=== PATIENT | female | born 2000 | race Caucasian/White ===

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

== ENCOUNTER 2022-01-15 18:41 | Emergency (ER) | payer OTHER ==
[2022-01-15] MEDS ORDERED: KETOROLAC TROMETHAMINE 30 MG/1 ML VIAL IM ONE (19:23)
[2022-01-15] MEDS ORDERED: ACETAMINOPHEN 500 MG TABLET (FP) PO ONE (19:23)
[2022-01-15] MEDS ORDERED: ONDANSETRON *ODT* 4 MG TABLET SL ONE (19:33)
[2022-01-15] MEDS ORDERED: ONDANSETRON *ODT* 4 MG TABLET ONE ×2 (20:08)
[2022-01-15] MEDS ORDERED: ACETAMINOPHEN 500 MG TABLET (FP) ONE (20:08)
[2022-01-15] MEDS ORDERED: KETOROLAC TROMETHAMINE 30 MG/1 ML VIAL ONE (20:08)
[2022-01-15 21:20] VITALS: BP 98/56; PULSE 111; TEMP 100.1
[2022-01-16 12:08] LABS: SARS-CoV-2 NAA Detected (Not Detected)
== END 2022-01-15 21:45 | disposition home or self-care (01) ==
LOC: JER 18:41
PROC: 3E0233Z Introduction of Anti-inflammatory into Muscle, Percutaneous Approach (ICD-10-PCS; principal; 2022-01-15)
DX: U07.1 COVID-19 (principal)
CPT/HCPCS: 99284-25; C9803-CS; Q0162; U0003; U0005

== ENCOUNTER 2022-04-05 13:52 | Emergency (ER) | payer OTHER ==
[2022-04-05] MEDS ORDERED: methylPREDNISolone NA SUCC 125 MG/2 ML VIAL ONE (13:57)
[2022-04-05] MEDS ORDERED: DEXAMETHASONE SOD PHOSPHATE 10 MG/1 ML VIAL IVPUSH ONE (13:57)
[2022-04-05] MEDS ORDERED: EPINEPHrine/PF 1 MG/1 ML (1:1,000) AMPULE ONE (13:57)
[2022-04-05] MEDS ORDERED: SODIUM CHLORIDE 0.9% 500 ML INFUS.BAG IV ONE (13:59)
[2022-04-05] MEDS ORDERED: FAMOTIDINE 20 MG/50 ML IVPB 20 MG/50 ML MG IVPB ONE ×2 (13:59→14:33)
[2022-04-05 14:03] VITALS: TEMP 97; BMI 21.6
[2022-04-05] MEDS ORDERED: EPINEPHrine 1:1,000 0.3 MG/0.3 ML SYR IM ONE ×2 (14:07→17:39)
[2022-04-05] MEDS ORDERED: methylPREDNISolone NA SUCC 125 MG/2 ML VIAL IVPUSH ONE (14:07)
[2022-04-05 14:15] LABS: BASO % 0.5 % (0-2.0); EOS % 3.7 % (0-4.5); HEMATOCRIT 32.3 % (32.4-45.2); HEMOGLOBIN 10.2 GM/dL (10.7-15.3); LYMPH % 29.8 % (8-40); MCHC 31.7 g/dl (32.0-36.0); MEAN CELL VOLUME 72.7 fl (80-96); MEAN PLT VOLUME 10.2 fl (7.5-11.1); MONO % 10.9 % (3.8-10.2); NEUT % 55.1 % (42.8-82.8); PLATELET COUNT 219 10^3/uL (134-434); RBC 4.44 M/mm3 (3.60-5.2); RDW 19.4 % (11.6-15.6); WHITE BLOOD COUNT 5.2 K/mm3 (4.0-10.0)
[2022-04-05 14:30] LABS: ALBUMIN 4.2 g/dl (3.4-5.0); CALCIUM 9.7 mg/dL (8.5-10.1)
[2022-04-05 14:31] LABS: BLOOD UREA NITROGEN 8.7 mg/dL (7-18)
[2022-04-05 14:34] LABS: CREATININE 0.7 mg/dL (0.55-1.3)
[2022-04-05 14:35] LABS: BILIRUBIN,TOTAL 0.3 mg/dL (0.2-1); TOT PROT 7.8 g/dl (6.4-8.2)
[2022-04-05 20:15] VITALS: BP 118/74; PULSE 76
== END 2022-04-05 20:16 | disposition home or self-care (01) ==
LOC: JER 13:52
PROC: 3E023GC Introduction of Other Therapeutic Substance into Muscle, Percutaneous Approach (ICD-10-PCS; principal; 2022-04-05)
PROC: 3E033GC Introduction of Other Therapeutic Substance into Peripheral Vein, Percutaneous Approach (ICD-10-PCS; principal; 2022-04-05)
DX: T78.2XXA Anaphylactic shock, unspecified, initial encounter (principal)
CPT/HCPCS: 36415; 80053; 84703; 85025; 99284-25; J0171

== ENCOUNTER 2022-10-09 22:47 | Emergency (ER) | payer OTHER ==
[2022-10-09 22:54] VITALS: BMI 21.1
[2022-10-10] MEDS ORDERED: DEXAMETHASONE SOD PHOSPHATE 10 MG/1 ML VIAL IVPUSH ONE (00:18)
[2022-10-10] MEDS ORDERED: ACETAMINOPHEN 1000 MG/100 ML BAG IVPB ONE (00:43)
[2022-10-10] MEDS ORDERED: DEXAMETHASONE SOD PHOSPHATE 10 MG/1 ML VIAL ONE (00:43)
[2022-10-10] MEDS ORDERED: ALBUTEROL SO4 2.5/IPRATROPIUM 0.5 INH SOL 3 ML VIAL.NEB. NEB ONE (00:56)
[2022-10-10] MEDS: ALBUTEROL SO4 2.5/IPRATROPIUM 0.5 INH SOL 3 ML VIAL.NEB. NEB SCH ×2 (01:00→01:52)
[2022-10-10] MEDS ORDERED: LACTATED RINGERS SOLUTION 1000 ML INFUS.BAG IV ONE (01:05)
[2022-10-10 01:13] LABS: BASO % 0.5 % (0-2.0); EOS % 1.5 % (0-4.5); HEMATOCRIT 32.6 % (32.4-45.2); HEMOGLOBIN 10.6 GM/dL (10.7-15.3); LYMPH % 10.7 % (8-40); MCH 23.4 pg (25.7-33.7); MCHC 32.4 g/dl (32.0-36.0); MEAN CELL VOLUME 72.3 fl (80-96); MEAN PLT VOLUME 10.6 fl (7.5-11.1); MONO % 16.6 % (3.8-10.2); NEUT % 70.7 % (42.8-82.8); PLATELET COUNT 205 10^3/uL (134-434); RBC 4.51 M/mm3 (3.60-5.2); RDW 19.4 % (11.6-15.6); WHITE BLOOD COUNT 4.4 K/mm3 (4.0-10.0)
[2022-10-10 01:31] LABS: INR 1.27 (0.83-1.09); PROTHROMBIN TIME (PATIENT) 14.6 SEC (9.7-13.0)
[2022-10-10 01:34] LABS: ACTIVATED PTT 28.1 SECONDS (25.2-36.5)
[2022-10-10 01:37] LABS: CALCIUM 9.4 mg/dL (8.5-10.1)
[2022-10-10 01:38] LABS: ALBUMIN 3.8 g/dl (3.4-5.0); BLOOD UREA NITROGEN 5.8 mg/dL (7-18)
[2022-10-10 01:41] LABS: CREATININE 0.8 mg/dL (0.55-1.3)
[2022-10-10 01:42] LABS: BILIRUBIN,TOTAL 0.6 mg/dL (0.2-1)
[2022-10-10 01:43] LABS: TOT PROT 7.7 g/dl (6.4-8.2)
[2022-10-10] MEDS ORDERED: KETOROLAC TROMETHAMINE 30 MG/1 ML VIAL IVPUSH ONE (01:55)
[2022-10-10] MEDS ORDERED: KETOROLAC TROMETHAMINE 30 MG/1 ML VIAL ONE (01:57)
[2022-10-10] MEDS ORDERED: SODIUM CHLORIDE 0.9% 500 ML INFUS.BAG IV ONE (03:14)
[2022-10-10] MEDS ORDERED: IBUPROFEN 600 MG TABLET (FP) PO ONE ×2 (03:14→03:27)
[2022-10-10 06:42] VITALS: BP 99/52; PULSE 98; RESP 18; TEMP 98.7
== END 2022-10-10 06:43 | disposition home or self-care (01) ==
LOC: JER 22:47
PROC: 3E0F7GC Introduction of Other Therapeutic Substance into Respiratory Tract, Via Natural or Artificial Opening (ICD-10-PCS; principal; 2022-10-09)
PROC: 3E0333Z Introduction of Anti-inflammatory into Peripheral Vein, Percutaneous Approach (ICD-10-PCS; 2022-10-09)
PROC: 3E0333Z Introduction of Anti-inflammatory into Peripheral Vein, Percutaneous Approach (ICD-10-PCS; 2022-10-09)
PROC: 3E033GC Introduction of Other Therapeutic Substance into Peripheral Vein, Percutaneous Approach (ICD-10-PCS; 2022-10-09)
DX: J09.X2 Influenza due to identified novel influenza A virus with other respiratory manifestations (principal); R05.1 Acute cough; R06.02 Shortness of breath
CPT/HCPCS: 0241U-QW; 36415; 71046-TC-FY; 80053; 84703; 85025; 85379; 85610; 85730; 86850; 86900; 86901; 93005; 93010; 99285-25; J1100

== ENCOUNTER 2023-09-29 06:02 | Emergency (ER) | payer OTHER ==
[2023-09-29 06:08] VITALS: RESP 18; BMI 21.6
[2023-09-29] MEDS ORDERED: predniSONE 20 MG TABLET (UD) PO ONE (08:05)
[2023-09-29] MEDS ORDERED: ALBUTEROL SO4 2.5/IPRATROPIUM 0.5 INH SOL 3 ML VIAL.NEB. NEB ONE ×2 (08:08→08:28)
[2023-09-29] MEDS ORDERED: predniSONE 20 MG TABLET (UD) ONE (08:09)
[2023-09-29] MEDS: ALBUTEROL SO4 2.5/IPRATROPIUM 0.5 INH SOL 3 ML VIAL.NEB. NEB SCH ×2 (08:14→08:57)
[2023-09-29] MEDS ORDERED: ALBUTEROL SO4 0.083% IH SOL 2.5 MG/3 ML VIAL.NEB. NEB ONE (10:20)
[2023-09-29] MEDS ORDERED: ALBUTEROL SO4 0.083% IH SOL 2.5 MG/3 ML VIAL.NEB. NEB STA (10:24)
[2023-09-29 12:22] VITALS: BP 103/70; PULSE 96; TEMP 98.8
== END 2023-09-29 12:24 | disposition home or self-care (01) ==
LOC: JER 06:02
PROC: 3E0F7GC Introduction of Other Therapeutic Substance into Respiratory Tract, Via Natural or Artificial Opening (ICD-10-PCS; principal; 2023-09-29)
PROC: 3E0F7GC Introduction of Other Therapeutic Substance into Respiratory Tract, Via Natural or Artificial Opening (ICD-10-PCS; 2023-09-29)
DX: R06.02 Shortness of breath (principal); J45.901 Unspecified asthma with (acute) exacerbation; Z20.822 Contact with and (suspected) exposure to COVID-19
CPT/HCPCS: 0241U-QW; 99284-25